=== PATIENT | female | born 1950 | race Two or more races ===

== ENCOUNTER → 2017-02-05 | Outpatient (CLI) | payer MEDICARE, OTHER ==
--- NOTE | 2017-02-08 12:19 | RADRPT ---
PROCEDURE: XR pelvis / bilateral hips. CLINICAL INDICATION: Hip pain TECHNIQUE: AP pelvis/AP and lateral right and left hip views performed COMPARISON: No prior studies are available for comparison. FINDINGS: There is moderate to severe bilateral hip osteoarthrosis. This is associated with joint space narrow ing, subchondral sclerosis and osteophytosis. There is normal mineralization. No fractures or osse ous lesions are identified. The soft tissues are unremarkable. IMPRESSION: Moderate to severe bilateral hip osteoarthrosis. RPTAT: [facility] .Milton Cornelius MD, MD Date Time Electronically viewed and signed by .Milton Cornelius MD, on 02/08/2017 12:19 .B/
== END | disposition home or self-care (01) ==
LOC: HKI 15:19
PROVIDERS: ATTEND Orthopaedic Surgery
DX: M16.0 Bilateral primary osteoarthritis of hip (principal); M25.551 Pain in right hip; M25.552 Pain in left hip
CPT/HCPCS: 73523; G0463